=== PATIENT | female | born 1985 | race Caucasian/White ===

== ENCOUNTER 2020-02-21 17:40 | Emergency (ER) | payer SELFPAY ==
[~2020-02-21] VITALS: Ht 170.2 cm; Wt 67.9 kg
--- NOTE | 2020-02-21 18:04 | NUR ---
PT WAS SEEN AT [facility] [place] [employer] FOR ABD CRAMPS, , LOWER BACK PAIN, RECTAL BLEEDING; SENT TO ED FOR FURTHER EVALUATION. SX STARTED 4 DAYS AGO. RECTAL BLEEDING IN OCTOBER. INTERMITTENT LOWER BACK PAIN AND ABD CRAMPS FOR 6 MONTHS. HAS TAKEN TYLENOL FOR SX; LAST DOSE 1300 TODAY. DENIES VOMITING, DIARRHEA, CONSTIPATION. SEXUALLY ACTIVE; HAS IUD; SAME PARTNER FOR YEARS. LMP: 2 WEEKS AGO. LAST BM: TODAY. LAST ORAL INTAKE: WATER TODAY, FOOD LAST NOC.
[2020-02-21] MEDS ORDERED: [UNRECOGNIZED DRUG - OTHER] (18:13)
[2020-02-21] MEDS ORDERED: LORA-247 PO (18:13)
[2020-02-21] MEDS ORDERED: IRON (18:13)
[2020-02-21 18:22] VITALS: BP 113/71
[2020-02-21 18:29] LABS: ANION GAP 2 mmol/L (5-15); CALCIUM 9.3 mg/dL (8.5-10.1); CHLORIDE 107 mmol/L (98-107); CREATININE 0.85 mg/dL (0.55-1.02)
[2020-02-21 18:38] LABS: HCG UR SG 1.012 (1.003-1.030); MICROSCOPIC NOT IND
--- NOTE | 2020-02-21 18:55 | NUR ---
PT REPORT TO JACEK SHEETS. PT CARE TRANSFERRED.
[2020-02-21 18:57] LABS: BASOPHILS # (AUTO) 0.05 x10^3/uL (0-0.1); BASOPHILS % (AUTO) 1 % (0-1); EOSINOPHILS # (AUTO) 0.09 x10^3/uL (0-0.4); EOSINOPHILS % (AUTO) 2 % (1-7); LYMPHOCYTES # (AUTO) 2.01 x10^3/uL (1-3.4); LYMPHOCYTES % (AUTO) 39 % (22-44); MD MORPH REVIEW ONLY; MEAN CORPUSCULAR HEMOGLOBIN 29.6 pg (27.0-34.8); MEAN CORPUSCULAR HGB CONC 33.6 g/dL (32.4-35.8); MEAN CORPUSCULAR VOLUME 88.1 fL (80-100); MEAN PLATELET VOLUME 9.1 fL (7.4-10.4); MONOCYTES # (AUTO) 0.21 x10^3/uL (0.2-0.8); MONOCYTES % (AUTO) 4 % (2-9); NEUTROPHILS # (AUTO) 2.78 x10^3/uL (1.8-6.8); NEUTROPHILS % (AUTO) 54 % (42-75); PLATELET COUNT 187 x10^3/uL (130-400); RED BLOOD COUNT 4.87 x10^6/uL (3.82-5.3); RED CELL DISTRIBUTION WIDTH 12.6 % (9.6-15.2)
[2020-02-21 19:03] LABS: <PLT MORPHOLOGY> NORMAL PLT MORPH; <RBC MORPHOLOGY> NORMAL
[2020-02-21 19:04] LABS: <PLATELET ESTIMATE> ADEQUATE
[2020-02-21] MEDS ORDERED: DICYCLOMINE 20 MG TABLET ONE (20:17)
[2020-02-21] MEDS ORDERED: DICYCLOMINE 10 MG CAPSULE PO ONE (20:30)
--- NOTE | 2020-02-21 20:47 | NUR ---
Patient/Caregiver given discharge instructions and they have confirmed that they understand the instructions. Patient ambulatory with steady gait.
== END 2020-02-21 20:48 | disposition home or self-care (01) ==
LOC: ED 20:10
DX: K64.4 Residual hemorrhoidal skin tags (principal); R10.9 Unspecified abdominal pain; M54.5 Low back pain
CPT/HCPCS: 36415; 80048; 81003; 81025; 83690; 85025; 99283

== ENCOUNTER 2020-02-23 08:00 | Outpatient (CLI) | payer OTHER ==
[~2020-02-23 08:00] MED LIST: IRON; LORA-247 PO; [UNRECOGNIZED DRUG - OTHER]
[2020-02-23] MEDS ORDERED: OMNIPAQUE 350 MG/ML, 100ML BOTTLE ONE (09:09)
== END 2020-02-23 23:59 | disposition home or self-care (01) ==
LOC: RAD 08:00
PROVIDERS: ATTEND Physician Assistant
DX: K57.30 Diverticulosis of large intestine without perforation or abscess without bleeding (principal); K76.89 Other specified diseases of liver; K64.9 Unspecified hemorrhoids
CPT/HCPCS: 74177; Q9967

== ENCOUNTER 2020-05-17 19:34 | Emergency (ER) | payer OTHER ==
[~2020-05-17] VITALS: Ht 170.2 cm; Wt 68.7 kg
--- NOTE | 2020-05-17 19:44 | NUR ---
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
[2020-05-17] MEDS ORDERED: MAALOX/HYOSCYAMINE/LIDOCAINE 45 ML BTL ONE (20:12)
[2020-05-17] MEDS ORDERED: ONDANSETRON ODT 4 MG ONE ×2 (20:12→20:16)
[2020-05-17] MEDS ORDERED: ONDANSETRON ODT 4 MG PO ONE (20:30)
[2020-05-17] MEDS ORDERED: MAALOX/HYOSCYAMINE/LIDOCAINE 45 ML BTL PO ONE (20:30)
[2020-05-17 20:39] LABS: BASOPHILS # (AUTO) 0.01 x10^3/uL (0-0.1); BASOPHILS % (AUTO) 0 % (0-1); EOSINOPHILS # (AUTO) 0.05 x10^3/uL (0-0.4); EOSINOPHILS % (AUTO) 1 % (1-7); LYMPHOCYTES # (AUTO) 0.37 x10^3/uL (1-3.4); LYMPHOCYTES % (AUTO) 5 % (22-44); MD NO; MEAN CORPUSCULAR HEMOGLOBIN 28.7 pg (27.0-34.8); MEAN CORPUSCULAR HGB CONC 32.5 g/dL (32.4-35.8); MEAN PLATELET VOLUME 7.7 fL (7.4-10.4); MONOCYTES # (AUTO) 0.18 x10^3/uL (0.2-0.8); MONOCYTES % (AUTO) 3 % (2-9); NEUTROPHILS # (AUTO) 6.29 x10^3/uL (1.8-6.8); NEUTROPHILS % (AUTO) 91 % (42-75); PLATELET COUNT 162 x10^3/uL (130-400); RED BLOOD COUNT 4.63 x10^6/uL (3.82-5.3); RED CELL DISTRIBUTION WIDTH 13.5 % (9.6-15.2)
[2020-05-17 20:50] LABS: ALANINE AMINOTRANSFERASE 51 U/L (12-78); ALBUMIN 3.6 g/dL (3.4-5.0); ANION GAP 6 mmol/L (5-15); CALCIUM 8.5 mg/dL (8.5-10.1); CHLORIDE 109 mmol/L (98-107); CREATININE 0.83 mg/dL (0.55-1.02)
[2020-05-17 20:52] LABS: ALKALINE PHOSPHATASE 90 U/L (45-117); TOTAL PROTEIN 7.2 g/dL (6.4-8.2)
[2020-05-17] MEDS ORDERED: OXYcodone/APAP 5/325MG TABLET ONE (21:29)
[2020-05-17] MEDS ORDERED: OXYcodone/APAP 5/325MG TABLET PO ONE (21:30)
[2020-05-17 23:19] VITALS: BP 108/55
== END 2020-05-17 23:20 | disposition home or self-care (01) ==
LOC: ED 20:50
DX: R07.89 Other chest pain (principal); R11.2 Nausea with vomiting, unspecified; R00.0 Tachycardia, unspecified
CPT/HCPCS: 36415; 71046; 80053; 83690; 85025; 93005; 99285; Q0162